=== PATIENT | male | born 1940 | race Caucasian/White ===

== ENCOUNTER 2020-05-24 00:15 | Observation (INO) ==
[2020-05-25] MEDS ORDERED: DEXTROSE 50% 25 GM/50 ML VIAL IV PRN (02:29)
[2020-05-25] MEDS ORDERED: ACETAMINOPHEN 325 MG TABLET PO PRN (02:29)
[2020-05-25] MEDS ORDERED: guaiFENesin/DM ER 600-30 MG TABLET PO PRN (02:29)
[2020-05-25] MEDS ORDERED: ONDANSETRON 4 MG/2 ML VIAL IV PRN (02:29)
[2020-05-25] MEDS ORDERED: diphenhydrAMINE CAP 25 MG CAPSULE PO PRN (02:29)
[2020-05-25] MEDS ORDERED: hydrALAZINE 20 MG/1 ML VIAL IV PRN (02:29)
[2020-05-25] MEDS ORDERED: NICOTINE 21 MG/24 HR PATCH TRANSDERM PRN (02:29)
[2020-05-25] MEDS ORDERED: GLUCAGON 1 MG VIAL IM PRN (02:29)
[2020-05-25] MEDS ORDERED: hydroCHLOROthiazide 12.5 MG CAPSULE PO PRN (02:32)
[2020-05-25] MEDS ORDERED: DOCUSATE SODIUM 100 MG CAPSULE PO PRN (02:32)
[2020-05-25 03:02] LABS: Basophils % 0.5 % (0.0-0.8); Eosinophils % 0.3 % (0.00-10.9); Hematocrit 37.6 VOL% (42.0-52.0); Hemoglobin 12.7 GM/DL (14.0-18.0); Immature Granulocytes % 0.3 %; Immature Granulocytes Absolute 0.01 #; Lymphocytes # 0.8 10*3/uL (1.4-4.0); Lymphocytes % 19.5 % (21.2-54.2); Mean Corpuscular HGB Conc 33.8 GM/DL (32-36); Mean Corpuscular Volume 93.5 FL (87-102); Mean Platelet Volume 10.7 FL (9.6-12.0); Monocytes % 8.9 % (1.7-12.7); Neutrophils % 70.5 % (38.7-73.9); Platelet Count 173 T/CUMM (130-400); Red Blood Count 4.02 MC/CUMM (3.8-5.5); Red Cell Distribution Width 13.2 % (9.3-17.3)
[2020-05-25 03:17] LABS: Albumin 3.4 G/DL (3.4-5.0); Bilirubin,Total 0.6 MG/DL (0.2-1.0); Calcium 8.4 MG/DL (8.5-10.1); Risk Ratio 2.78; Thyroid Stimulating Hormone 2.65 uIU/ml (0.358-3.74); Total Protein 6.3 G/DL (6.4-8.3); VLDL CHOLESTEROL 8.4 MG/DL
[2020-05-25] MEDS: APIXABAN 5 MG TABLET PO SCH ×2 (09:48→21:50)
[2020-05-25] MEDS: DUTASTERIDE 0.5 MG CAPSULE PO SCH (09:49)
[2020-05-25] MEDS: AMIODARONE 200 MG TABLET PO SCH (09:49)
[2020-05-25] MEDS: ASPIRIN EC 325 MG TABLET PO SCH (09:50)
[2020-05-25] MEDS ORDERED: amLODIPine 5 MG TABLET PO SCH (10:52)
[2020-05-25] MEDS: amLODIPine 5 MG TABLET PO SCH (11:17)
[2020-05-25 19:21] LABS: Apearance,Urine Slightly Hazy (Clear); Bacteria,Urine Occasional /HPF (Few); Bilirubin,Urine Negative (Negative); Blood, Urine Small mg/dL (Negative); Glucose,Urine (UA) 50 mg/dL (Negative); Ketones,Urine Negative (Negative); Mucus,Urine Many /LPF (Occasional); Nitrite,Urine Negative (Negative); Protein,Urine 30 MG/DL; RBC,Urine 2 /HPF (0-4); Squamous Epithelial Cell,Urine Occasional /HPF (0-10); Urine Color Yellow (Yellow); Urine Urobilinogen < 2.0 EU/DL (0.2-1.0); WBC,Urine 3 /HPF (0-6)
[2020-05-25] MEDS ORDERED: ROSUVASTATIN 10 MG TABLET PO SCH (21:00)
[2020-05-26 07:28] VITALS: BP 130/72
[2020-05-26] MEDS ORDERED: amLODIPine 10 MG TABLET PO SCH (09:00)
[2020-05-26] MEDS: APIXABAN 5 MG TABLET PO SCH (09:02)
[2020-05-26] MEDS: AMIODARONE 200 MG TABLET PO SCH (09:03)
[2020-05-26] MEDS: DUTASTERIDE 0.5 MG CAPSULE PO SCH (09:03)
[2020-05-26] MEDS: amLODIPine 5 MG TABLET PO SCH (09:03)
[2020-05-26] MEDS: ASPIRIN EC 325 MG TABLET PO SCH (09:03)
== END 2020-05-26 11:00 | disposition home or self-care (01) ==
LOC: N.TELEN → SUATTDRO 05-25 00:43
PROVIDERS: ADMIT Internal Medicine; ATTEND Internal Medicine